=== PATIENT | male | born 1955 | race Caucasian/White ===

== ENCOUNTER 2019-04-09 07:00 | Emergency (ER) | payer BC, SELFPAY ==
[2019-04-09 07:14] VITALS: BP 124/84; PULSE 110; RESP 15; TEMP 36.8; O2SAT 96; BMI 14.6
--- NOTE | 2019-04-09 07:14 | ED.SOB ---
HPI - SOB/Dyspnea General Chief Complaint: Shortness of Breath/Dyspnea Stated Complaint: sob/cancer Time Seen by Provider: 04/09/19 07:05 Source: patient and family Mode of arrival: ambulatory Limitations: no limitations History of Present Illness 63-year-old male nonsmoker with history of esophageal cancer and recurrent pleural effusions presents with family. He is visiting locally and feels short of breath, like he normally does when he requires a thoracentesis. He is cared for in [place], [place] by oncologist and has been here about 2 weeks. He had very extensive pre travel exams including multiple CT scans. He has been feeling increasingly short of breath over the past few days. Denies any chest pain or fever or chills. He has a drain in his right pleura which he uses about every 3rd day and removed about 150 mL yesterday. MD Complaint: shortness of breath Severity: mild Consistency/Duration: constant Relieving factors: rest Exacerbating factors: exertion Associated symptoms: denies other symptoms Related Data Allergies Allergy/AdvReac Type Severity Reaction Status Date / Time No Known Drug Allergies Allergy Verified 04/09/19 07:14 Review of Systems Constitutional Denies chills, Denies fever(s), Denies lethargy and Denies weakness Eyes Denies change in vision, Denies eye discharge, Denies irritation and Denies loss of vision ENT Ears, Nose, Mouth, and Throat: Denies change in voice, Denies neck pain and Denies sore throat Cardiovascular Denies chest pain, Denies irregular heart rhythm, Denies lightheadedness, Denies palpitations, Reports dyspnea, Denies dyspnea on exertion and Denies orthopnea Respiratory Denies cough, Reports dyspnea, Denies dyspnea on exertion and Denies wheezing Gastrointestinal Gastrointestinal: Denies abdominal pain, Denies change in bowel habits, Denies diarrhea, Denies nausea and Denies vomiting Genitourinary Denies hematuria, Denies flank pain, Denies urinary incontinence and Denies urinary urgency Musculoskeletal Denies neck pain Integumentary/Breasts Denies pruritus, Denies erythema, Denies rash and Denies wounds Neurologic Denies confusion, Denies loss of vision and Denies weakness Psychiatric Denies anxiety, Denies confusion, Denies depression, Denies homicidal ideation and Denies suicidal ideation Endocrine Denies palpitations Hematologic/Lymphatic Denies easy bruising Allergic/Immunologic Denies wheezing [facility] Medical History (Updated 04/09/19 @ 18:58 by Aashish Phipps DO) Esophageal cancer (Acute) Social History Smoking Status: Never smoker Social History Smoking Status: Never smoker Exam Narrative Exam Narrative: GENERAL: Very pleasant 63-year-old male appears stated age, no obvious distress HEAD: Atraumatic. Normocephalic. No temporal or scalp tenderness. EYES: Pupils equal round and reactive. Extraocular motions intact. No scleral icterus. No injection or drainage. ENT: Nose without bleeding, purulent drainage or septal hematoma. Throat without erythema, tonsillar hypertrophy or exudate. Uvula midline. Airway patent. NECK: Trachea midline. No JVD or lymphadenopathy. Supple, nontender, no meningeal signs. CARDIOVASCULAR: Regular rate and rhythm without murmurs, gallops, or rubs. RESPIRATORY: Decreased breath sounds bilaterally, no breath sounds in the lower 1/3 of left lung GASTROINTESTINAL: Abdomen soft, non-tender, nondistended. No hepato-splenomegaly, or palpable masses. No guarding. EXTREMITIES: No clubbing, cyanosis, or edema. No joint tenderness, effusion, or edema noted. BACK: Nontender without deformity or crepitance. No flank tenderness. NEURO: AOx3. SKIN: No rash or erythema. Initial Vital Signs Initial Vital Signs: Vital Signs Temperature 98.3 F 04/09/19 07:14 Pulse Rate 110 H 04/09/19 07:14 Respiratory Rate 15 04/09/19 07:14 Blood Pressure 124/84 04/09/19 07:14 Pulse Oximetry 96 04/09/19 07:14 Course Orders Ordered: ED Orders 04/09/19 07:22 XR chest 2V Stat 04/09/19 08:19 Basic Metabolic Panel Stat Complete Blood Count AUTO DIFF Stat Prothrombin Time INR Stat 04/09/19 08:31 US chest Stat Consultations Consultation #1: I have spoken with on-call Radiology and after discussing chest x-ray and ultrasound results we sure the opinion that thoracentesis is not indicated at this point time. Vital Signs - 8 hr 04/09/19 07:14 04/09/19 07:23 Temperature 98.3 F 98.3 F Pulse Rate 110 H 102 H Respiratory Rate 15 11 L Blood Pressure 124/84 Blood Pressure [Right Arm] 124/84 Pulse Oximetry 96 98 MDM - SOB/Dyspnea Lab Data Result diagrams: 04/09/19 08:19 04/09/19 08:19 Lab Results 04/09/19 04/09/19 04/09/19 Range/Units 08:19 08:19 08:19 WBC 8.9 (4.5-11.0) X10^3/uL RBC 4.75 (4.5-5.9) X10^6/uL Hgb 12.6 L (13.5-17.5) g/dL Hct 38.8 L (41-53) % MCV 81.7 (80-100) fL MCH 26.5 (26-34) PG MCHC 32.4 (30-36) % RDW 20.1 H (11.6-14.8) % Plt Count 191 (150-400) X10^3/uL Neut % (Auto) 86.2 H (50-75) % Lymph % (Auto) 2.0 L (25-40) % [place] % (Auto) 9.8 (3-14) % Eos % (Auto) 1.1 L (2-4) % Baso % (Auto) 0.9 (0-2) % Neut # (Auto) 7600 H (4458-7819) /uL Lymph # (Auto) 200 L (9549-0048) /uL [place] # (Auto) 900 (0-900) /uL Eos # (Auto) 100 (0-450) /uL Baso # (Auto) 100 (0-100) /uL RBC Morphology See below Anisocytosis 1+ H PT 13.2 H (10.1-12.7) SECONDS INR 1.1 (0.9-1.3) Sodium 135 L (137-145) mmol/L Potassium 3.7 (3.4-5.1) mmol/L Chloride 97 L (98-107) mmol/L Carbon Dioxide 30 (22-32) mmol/L BUN 21 H (9-20) mg/dL Creatinine 0.80 (0.66-1.25) mg/dL Estimated GFR > 60.0 (>60) mL/min BUN/Creatinine Ratio 26.3 H (6-22) Glucose 103 (80-110) mg/dL Calcium 9.2 (8.4-10.2) mg/dL Imaging Data Chest x-ray: Radiologist's impression: [address] [id number] XRay Report Signed Patient: Arturo Whitfield EMR#: [id number] : 6Acct:[id number] Age/Sex: 63 / MDate of Service: 04/09/19 Loc: ED Accession Number: [id number] Procedure: XR chest 2V Ordering Provider: Aashish Phipps D.O. PROCEDURE: XR CHEST 2V INDICATIONS: SOB TECHNIQUE: 2 views of the chest were acquired. COMPARISON: None. FINDINGS: Surgical changes and devices: Left subclavian Mediport. A small bore right pleural drain in place.. Lungs and pleura: Moderate bilateral pleural effusions. The left effusion layers over the left lung apex. Thickening of the interstitial markings in the mid to lower lungs. Probable compressive atelectatic changes at both lung bases. Mediastinum: Mediastinal contours are normal. Heart size is normal. Mildly prominent hilar contours bilaterally. Bones and chest wall: No suspicious bony abnormalities. Soft tissues appear unremarkable. IMPRESSION: 1. Moderate bilateral pleural effusions, the right is drained by an indwelling catheter. 2. Interstitial markings are increased which may reflect edema, infection, or neoplasm. 3. Prominent hilar markings bilaterally, potentially adenopathy or central venous congestion. Dictated by: Xena Sharma M.D. on 04/09/2019 at 8:25 Approved by: Xena Sharma M.D. on 04/09/2019 at 8:30 Chest US: Radiologist's impression: [address] [address] Ultrasound Report Signed Patient: Arturo Whitfield EMR#: [id number] : 6Acct:[id number] Age/Sex: 63 / MDate of Service: 04/09/19 Loc: ED Accession Number: [id number] Procedure: US chest Ordering Provider: Aashish Phipps D.O. PROCEDURE: US CHEST COMPARISON: None. INDICATIONS: LEFT PLEURAL EFFUSION FINDINGS: Pleural ultrasound demonstrates approximately 300 cc left pleural fluid. IMPRESSION: Small pleural effusion. Not adequate for percutaneous thoracentesis. Dictated by: Tessy Hidalgo M.D. on 04/09/2019 at 9:25 Approved by: Tessy Hidalgo M.D. on 04/09/2019 at 9:25 [facility] Narrative Medical decision making narrative: 63-year-old male with history of esophageal cancer and recurrent pleural effusions presents in minimal distress. He states that he is far from significant distress but was concerned that maybe his pleural effusion had recurred. We discussed what shows on the imaging and the minimal size of this effusion. We also considered the possibility of pneumonia, pneumothorax or electrolyte abnormality. We discussed the possibility of doing a CAT scan of his chest for a PE but decided it was not something the patient would like to do right now but that he would return immediately if things should change. He has been given extensive return precautions and not only understands but is able to verbalize these precautions. Discharge Plan Departure Patient Disposition: Home Clinical Impression: Acute dyspnea, Pleural effusion Discharge Date/Time: 04/09/19 09:30 Interventions: ED Discharge Assessment Last Done: 04/09/19 09:40 Instructions: DI for Shortness of Breath Activity Restrictions/Additional Instructions: *You have been diagnosed with [shortness of breath and pleural effusion] *What to do: * continue to take medications as directed and consider over the counter antihistamines such as zyrtec, germania, or claritin *Follow up with your primary care provider daysi you get home, call for an appointment. Let them know you were seen in the Emergency Department and that we ask that you be seen in follow up *Return to ER if you should have any new, worsening or concerning symptoms
--- NOTE | 2019-04-09 07:22 | DI.RAD.S_ITS ---
PROCEDURE: XR CHEST 2V INDICATIONS: SOB TECHNIQUE: 2 views of the chest were acquired. COMPARISON: None. FINDINGS: Surgical changes and devices: Left subclavian Mediport. A small bore right pleural drain in place.. Lungs and pleura: Moderate bilateral pleural effusions. The left effusion layers over the left lung apex. Thickening of the interstitial markings in the mid to lower lungs. Probable compressive atelectatic changes at both lung bases. Mediastinum: Mediastinal contours are normal. Heart size is normal. Mildly prominent hilar contours bilaterally. Bones and chest wall: No suspicious bony abnormalities. Soft tissues appear unremarkable. IMPRESSION: 1. Moderate bilateral pleural effusions, the right is drained by an indwelling catheter. 2. Interstitial markings are increased which may reflect edema, infection, or neoplasm. 3. Prominent hilar markings bilaterally, potentially adenopathy or central venous congestion. Dictated by: Xena Sharma M.D. on 04/09/2019 at 8:25 Approved by: Xena Sharma M.D. on 04/09/2019 at 8:30
[2019-04-09 07:23] VITALS: BP 124/84; PULSE 102; RESP 11; TEMP 36.8; O2SAT 98
[2019-04-09 08:30] LABS: Add Manual Diff / Slide Review NO; Basophils Absolute Auto 100 /uL (0-100); Basophils Percent Auto 0.9 % (0-2); Eosinophils Absolute Auto 100 /uL (0-450); Eosinophils Percent Auto 1.1 % (2-4); Hematocrit 38.8 % (41-53); Hemoglobin 12.6 g/dL (13.5-17.5); Lymphocytes Absolute Auto 200 /uL (1100-4500); Mean Corpuscular HGB Conc 32.4 % (30-36); Mean Corpuscular Hemoglobin 26.5 PG (26-34); Mean Corpuscular Volume 81.7 fL (80-100); Monocytes Absolute Auto 900 /uL (0-900); Monocytes Percent Auto 9.8 % (3-14); Neutrophils Absolute Auto 7600 /uL (1500-7000); Neutrophils Percent Auto 86.2 % (50-75); Platelet Count 191 X10^3/uL (150-400); Red Blood Cell Count 4.75 X10^6/uL (4.5-5.9); Red Cell Distribution Width 20.1 % (11.6-14.8); White Blood Cell Count 8.9 X10^3/uL (4.5-11.0)
--- NOTE | 2019-04-09 08:31 | DI.US.S_ITS ---
PROCEDURE: US CHEST COMPARISON: None. INDICATIONS: LEFT PLEURAL EFFUSION FINDINGS: Pleural ultrasound demonstrates approximately 300 cc left pleural fluid. IMPRESSION: Small pleural effusion. Not adequate for percutaneous thoracentesis. Dictated by: Tessy Hidalgo M.D. on 04/09/2019 at 9:25 Approved by: Tessy Hidalgo M.D. on 04/09/2019 at 9:25
[2019-04-09 08:39] LABS: INR 1.1 (0.9-1.3); Prothrombin Time 13.2 SECONDS (10.1-12.7)
[2019-04-09 08:51] LABS: BUN Creatinine Ratio 26.3 (6-22); Blood Urea Nitrogen 21 mg/dL (9-20); Calcium 9.2 mg/dL (8.4-10.2); Carbon Dioxide 30 mmol/L (22-32); Chloride 97 mmol/L (98-107); Estimated Glomerular Filt Rate > 60.0 mL/min (>60); Glucose 103 mg/dL (80-110); HEMOLYSIS < 15 (0-50); Potassium 3.7 mmol/L (3.4-5.1); Sodium 135 mmol/L (137-145)
[2019-04-09 08:54] LABS: Anisocytosis 1+
--- NOTE | 2019-04-09 09:12 | ED_ITS ---
HPI - SOB/Dyspnea General Chief Complaint: Shortness of Breath/Dyspnea Stated Complaint: sob/cancer Time Seen by Provider: 04/09/19 07:05 Source: patient and family Mode of arrival: ambulatory Limitations: no limitations History of Present Illness 63-year-old male nonsmoker with history of esophageal cancer and recurrent pleural effusions presents with family. He is visiting locally and feels short of breath, like he normally does when he requires a thoracentesis. He is cared for in [place], [place] by oncologist and has been here about 2 weeks. He had very extensive pre travel exams including multiple CT scans. He has been feeling increasingly short of breath over the past few days. Denies any chest pain or fever or chills. He has a drain in his right pleura which he uses about every 3rd day and removed about 150 mL yesterday. MD Complaint: shortness of breath Severity: mild Consistency/Duration: constant Relieving factors: rest Exacerbating factors: exertion Associated symptoms: denies other symptoms Related Data Allergies Allergy/AdvReac Type Severity Reaction Status Date / Time No Known Drug Allergies Allergy Verified 04/09/19 07:14 Review of Systems Constitutional Denies chills, Denies fever(s), Denies lethargy and Denies weakness Eyes Denies change in vision, Denies eye discharge, Denies irritation and Denies loss of vision ENT Ears, Nose, Mouth, and Throat: Denies change in voice, Denies neck pain and Denies sore throat Cardiovascular Denies chest pain, Denies irregular heart rhythm, Denies lightheadedness, Denies palpitations, Reports dyspnea, Denies dyspnea on exertion and Denies orthopnea Respiratory Denies cough, Reports dyspnea, Denies dyspnea on exertion and Denies wheezing Gastrointestinal Gastrointestinal: Denies abdominal pain, Denies change in bowel habits, Denies diarrhea, Denies nausea and Denies vomiting Genitourinary Denies hematuria, Denies flank pain, Denies urinary incontinence and Denies urinary urgency Musculoskeletal Denies neck pain Integumentary/Breasts Denies pruritus, Denies erythema, Denies rash and Denies wounds Neurologic Denies confusion, Denies loss of vision and Denies weakness Psychiatric Denies anxiety, Denies confusion, Denies depression, Denies homicidal ideation and Denies suicidal ideation Endocrine Denies palpitations Hematologic/Lymphatic Denies easy bruising Allergic/Immunologic Denies wheezing [facility] Medical History (Updated 04/09/19 @ 18:58 by Aashish Phipps DO) Esophageal cancer (Acute) Social History Smoking Status: Never smoker Social History Smoking Status: Never smoker Exam Narrative Exam Narrative: GENERAL: Very pleasant 63-year-old male appears stated age, no obvious distress HEAD: Atraumatic. Normocephalic. No temporal or scalp tenderness. EYES: Pupils equal round and reactive. Extraocular motions intact. No scleral icterus. No injection or drainage. ENT: Nose without bleeding, purulent drainage or septal hematoma. Throat without erythema, tonsillar hypertrophy or exudate. Uvula midline. Airway patent. NECK: Trachea midline. No JVD or lymphadenopathy. Supple, nontender, no meningeal signs. CARDIOVASCULAR: Regular rate and rhythm without murmurs, gallops, or rubs. RESPIRATORY: Decreased breath sounds bilaterally, no breath sounds in the lower 1/3 of left lung GASTROINTESTINAL: Abdomen soft, non-tender, nondistended. No hepato- splenomegaly, or palpable masses. No guarding. EXTREMITIES: No clubbing, cyanosis, or edema. No joint tenderness, effusion, or edema noted. BACK: Nontender without deformity or crepitance. No flank tenderness. NEURO: AOx3. SKIN: No rash or erythema. Initial Vital Signs Initial Vital Signs: Vital Signs Temperature 98.3 F 04/09/19 07:14 Pulse Rate 110 H 04/09/19 07:14 Respiratory Rate 15 04/09/19 07:14 Blood Pressure 124/84 04/09/19 07:14 Pulse Oximetry 96 04/09/19 07:14 Course Orders Ordered: ED Orders 04/09/19 07:22 XR chest 2V Stat 04/09/19 08:19 Basic Metabolic Panel Stat Complete Blood Count AUTO DIFF Stat Prothrombin Time INR Stat 04/09/19 08:31 US chest Stat Consultations Consultation #1: I have spoken with on-call Radiology and after discussing chest x-ray and ultrasound results we sure the opinion that thoracentesis is not indicated at this point time. Vital Signs - 8 hr 04/09/19 07:14 04/09/19 07:23 Temperature 98.3 F 98.3 F Pulse Rate 110 H 102 H Respiratory Rate 15 11 L Blood Pressure 124/84 Blood Pressure [Right Arm] 124/84 Pulse Oximetry 96 98 MDM - SOB/Dyspnea Lab Data Result diagrams: 04/09/19 08:19 04/09/19 08:19 Lab Results 04/09/19 04/09/19 04/09/19 Range/Units 08:19 08:19 08:19 WBC 8.9 (4.5-11.0) X10^3/uL RBC 4.75 (4.5-5.9) X10^6/uL Hgb 12.6 L (13.5-17.5) g/dL Hct 38.8 L (41-53) % MCV 81.7 (80-100) fL MCH 26.5 (26-34) PG MCHC 32.4 (30-36) % RDW 20.1 H (11.6-14.8) % Plt Count 191 (150-400) X10^3/uL Neut % (Auto) 86.2 H (50-75) % Lymph % (Auto) 2.0 L (25-40) % [place] % (Auto) 9.8 (3-14) % Eos % (Auto) 1.1 L (2-4) % Baso % (Auto) 0.9 (0-2) % Neut # (Auto) 7600 H (1301-5755) /uL Lymph # (Auto) 200 L (0963-0359) /uL [place] # (Auto) 900 (0-900) /uL Eos # (Auto) 100 (0-450) /uL Baso # (Auto) 100 (0-100) /uL RBC Morphology See below Anisocytosis 1+ H PT 13.2 H (10.1-12.7) SECONDS INR 1.1 (0.9-1.3) Sodium 135 L (137-145) mmol/L Potassium 3.7 (3.4-5.1) mmol/L Chloride 97 L (98-107) mmol/L Carbon Dioxide 30 (22-32) mmol/L BUN 21 H (9-20) mg/dL Creatinine 0.80 (0.66-1.25) mg/dL Estimated GFR > 60.0 (>60) mL/min BUN/Creatinine Ratio 26.3 H (6-22) Glucose 103 (80-110) mg/dL Calcium 9.2 (8.4-10.2) mg/dL Imaging Data Chest x-ray: Radiologist's impression: [address] [address] XRay Report Signed Patient: Arturo Whitfield EMR#: [id number] : 6Acct:[id number] Age/Sex: 63 / MDate of Service: 04/09/19 Loc: ED Accession Number: [id number] Procedure: XR chest 2V Ordering Provider: Aashish Phipps D.O. PROCEDURE: XR CHEST 2V INDICATIONS: SOB TECHNIQUE: 2 views of the chest were acquired. COMPARISON: None. FINDINGS: Surgical changes and devices: Left subclavian Mediport. A small bore right pleural drain in place.. Lungs and pleura: Moderate bilateral pleural effusions. The left effusion layers over the left lung apex. Thickening of the interstitial markings in the mid to lower lungs. Probable compressive atelectatic changes at both lung bases. Mediastinum: Mediastinal contours are normal. Heart size is normal. Mildly prominent hilar contours bilaterally. Bones and chest wall: No suspicious bony abnormalities. Soft tissues appear unremarkable. IMPRESSION: 1. Moderate bilateral pleural effusions, the right is drained by an indwelling catheter. 2. Interstitial markings are increased which may reflect edema, infection, or neoplasm. 3. Prominent hilar markings bilaterally, potentially adenopathy or central venous congestion. Dictated by: Xena Sharma M.D. on 04/09/2019 at 8:25 Approved by: Xena Sharma M.D. on 04/09/2019 at 8:30 Chest US: Radiologist's impression: [address] [address] Ultrasound Report Signed Patient: Arturo Whitfield EMR#: [id number] : 6Acct:[id number] Age/Sex: 63 / MDate of Service: 04/09/19 Loc: ED Accession Number: [id number] Procedure: US chest Ordering Provider: Aashish Phipps D.O. PROCEDURE: US CHEST COMPARISON: None. INDICATIONS: LEFT PLEURAL EFFUSION FINDINGS: Pleural ultrasound demonstrates approximately 300 cc left pleural fluid. IMPRESSION: Small pleural effusion. Not adequate for percutaneous th oracentesis. Dictated by: Tessy Hidalgo M.D. on 04/09/2019 at 9:25 Approved by: Tessy Hidalgo M.D. on 04/09/2019 at 9:25 [facility] Narrative Medical decision making narrative: 63-year-old male with history of esophageal c ancer and recurrent pleural effusions presents in minimal distress. He states that he is far from significant distress but was concerned that maybe his pleural effusion had recurred. We discussed what shows on the imaging and the minimal size of this effusion. We also considered the possibility of pneumonia, pneumothorax or electrolyte abnormality. We discussed the possibility of doing a CAT scan of his chest for a PE but decided it was not something the patient would like to do right now but that he would return immediately if things should change. He has been given extensive return precautions and not only understands but is able to verbalize these precautions. Discharge Plan Departure Patient Disposition: Home Clinical Impression: Acute dyspnea, Pleural effusion Discharge Date/Time: 04/09/19 09:30 Interventions: ED Discharge Assessment Last Done: 04/09/19 09:40 Instructions: DI for Shortness of Breath Activity Restrictions/Additional Instructions: *You have been diagnosed with [shortness of breath and pleural effusion] *What to do: * continue to take medications as directed and consider over the counter antihistamines such as zyrtec, germania, or claritin *Follow up with your primary care provider daysi you get home, call for an appointment. Let them know you were seen in the Emergency Department and that we ask that you be seen in follow up *Return to ER if you should have any new, worsening or concerning symptoms
[2019-04-09 09:40] VITALS: BP 110/72; PULSE 99; RESP 17; TEMP 36.4; O2SAT 99
== END 2019-04-09 09:30 | disposition home or self-care (01) ==
PROVIDERS: Emergency Provider Emergency Medicine
DX: R06.00 Dyspnea, unspecified (principal); J90 Pleural effusion, not elsewhere classified
CPT/HCPCS: 36415; 71046; 76604; 80048; 85025; 85610; 93005; 93010; 99282; 99284

== ENCOUNTER 2019-04-13 09:13 | Emergency (ER) | payer BC, SELFPAY ==
[2019-04-13 09:15] VITALS: BP 126/87; PULSE 111; RESP 17; TEMP 36.5; O2SAT 93
--- NOTE | 2019-04-13 09:26 | DI.RAD.S_ITS ---
PROCEDURE: XR CHEST 1V INDICATIONS: return, short of breath, hx recurrent effusions TECHNIQUE: One view of the chest was acquired. COMPARISON: [facility], , US CHEST, 04/09/2019, 8:42. [facility], CR, XR CHEST 2V, 04/09/2019, 7:59. FINDINGS: Surgical changes and devices: There is a stable right-sided chest port seen. There is a right pleural drain seen. Lungs and pleura: Small bilateral pleural effusions are seen, left worse than right. Low lung volumes are noted. This causes a crowded appearance to the lung markings and limits evaluation. Interstitial prominence is seen throughout. No pneumothorax is seen. Mediastinum: Mediastinal contours appear normal. Heart size is mildly enlarged. Bones and chest wall: No suspicious bony lesions. Age-appropriate bony degenerative changes are seen. Overlying soft tissues appear unremarkable. IMPRESSION: Small bilateral pleural effusions, mild cardiomegaly, and interstitial prominence. Please correlate with patient presentation, physical examination findings, and laboratory values for congestive heart failure. There is a left-sided chest port and a right pleural drain present. Dictated by: Jamarcus Kuhn M.D. on 04/13/2019 at 8:52 Approved by: Jamarcus Kuhn M.D. on 04/13/2019 at 8:54
[2019-04-13 09:30] VITALS: BP 120/80; PULSE 103; RESP 26; O2SAT 95
[2019-04-13 09:47] LABS: Add Manual Diff / Slide Review NO; Basophils Absolute Auto 0 /uL (0-100); Basophils Percent Auto 0.5 % (0-2); Eosinophils Absolute Auto 100 /uL (0-450); Eosinophils Percent Auto 1.7 % (2-4); Hematocrit 36.9 % (41-53); Hemoglobin 12.2 g/dL (13.5-17.5); Lymphocytes Absolute Auto 200 /uL (1100-4500); Lymphocytes Percent Auto 2.5 % (25-40); Mean Corpuscular Hemoglobin 26.9 PG (26-34); Mean Corpuscular Volume 81.5 fL (80-100); Monocytes Absolute Auto 900 /uL (0-900); Monocytes Percent Auto 11.5 % (3-14); Neutrophils Absolute Auto 6400 /uL (1500-7000); Neutrophils Percent Auto 83.8 % (50-75); Platelet Count 195 X10^3/uL (150-400); Red Blood Cell Count 4.53 X10^6/uL (4.5-5.9); Red Cell Distribution Width 19.6 % (11.6-14.8); White Blood Cell Count 7.7 X10^3/uL (4.5-11.0)
[2019-04-13 09:55] LABS: INR 1.1 (0.9-1.3); Prothrombin Time 13.2 SECONDS (10.1-12.7)
[2019-04-13 10:00] VITALS: BP 110/66; PULSE 106; RESP 20; TEMP 37.2; O2SAT 96
[2019-04-13 10:00] LABS: BUN Creatinine Ratio 31.3 (6-22); Blood Urea Nitrogen 25 mg/dL (9-20); Calcium 9.3 mg/dL (8.4-10.2); Carbon Dioxide 28 mmol/L (22-32); Chloride 99 mmol/L (98-107); Estimated Glomerular Filt Rate > 60.0 mL/min (>60); Glucose 109 mg/dL (80-110); HEMOLYSIS < 15 (0-50); Potassium 3.6 mmol/L (3.4-5.1); Sodium 136 mmol/L (137-145)
--- NOTE | 2019-04-13 10:38 | DI.CT.S_ITS ---
PROCEDURE: CT ANGIO CHEST PE PROTOCOL INDICATIONS: SOB, travel, hx CA TECHNIQUE: After the administration of intravenous contrast, 2 mm thick sections acquired from the pulmonary apices to the posterior costophrenic angles. 3-dimensional maximum intensity projection (MIP) coronal and sagittal reformats were then acquired through the thorax. For radiation dose reduction, the following was used: automated exposure control, adjustment of mA and/or kV according to patient size. COMPARISON: None. FINDINGS: Image quality: Excellent. Pulmonary arteries: Pulmonary arteries are normal in size, and demonstrate no intraluminal filling defects to suggest central pulmonary embolism. Lungs and pleura: Small partially loculated left pleural effusion and moderate-sized loculated right pleural effusion is seen. Right-sided chest tube is noted. Scattered patchy infiltrate/atelectasis in posterior and lateral aspect of bilateral lung ruiz are seen more prominent in bilateral lower lobes. Hazy groundglass opacity in bilateral lung ruiz are noted more prominent in bilateral lower lobes suggestive of pulmonary edema versus pneumonitis. No pneumothorax. Central and peripheral airways are patent. Mediastinum: Heart size is normal, with small pericardial effusion measures up to 6 mm in thickness adjacent to left ventricle. Subcentimeter lymph nodes are seen scattered in the mediastinum and bilateral hilar region measures up to 7 mm in short axis diameter.. Thoracic aorta is normal in caliber and enhancement. Esophagus is normal in caliber, with a small to moderate-sized hiatal hernia. Bones and chest wall: Left chest wall Port-A-Cath tip is in SVC. Oval sclerotic focus involving posterior aspect of T3 vertebral body is seen, likely represent focal bone island. No suspicious bony lesions. Ribs and thoracic spine appear intact throughout. Thyroid gland is within normal limits. No axillary or supraclavicular adenopathy. Abdomen: Visualized upper abdominal solid organs appear normal in the early arterial phase of enhancement. Thickened left adrenal gland is seen. IMPRESSION: 1. Moderate-sized loculated right pleural effusion and at least partially loculated small to moderate size left pleural effusion. Small patchy infiltrate/atelectasis scattered in posterior and lateral aspect of the lateral lung ruiz more prominent in bilateral lower lobes. Suggestion of mild pulmonary edema versus pneumonitis. No pneumothorax. Airway is patent. Right-sided chest tube is in place. 2. Subcentimeter lymph nodes seen the mediastinum and bilateral hilar region. Small pericardial effusion. 3. Thickened left adrenal gland. Dictated by: Stas Shaikh M.D. on 04/13/2019 at 11:00 Approved by: Stas Shaikh M.D. on 04/13/2019 at 11:10
--- NOTE | 2019-04-13 10:48 | PC.NURSE ---
Pt has drainage pleuric tube on R chest and reports minimal drainage in sangenous color. Pt drained yesterday hoping it'd improve SOB. Denies fever. Dressing clean, dry , intact. Pt grunts in between talking with this RN but no retraction or increased work of breathing
--- NOTE | 2019-04-13 10:49 | ED.SOB ---
HPI - SOB/Dyspnea General Chief Complaint: Shortness of Breath/Dyspnea Stated Complaint: Shortness of breath Time Seen by Provider: 04/13/19 09:15 Source: patient and family Mode of arrival: ambulatory Limitations: no limitations History of Present Illness 63M non smoker with history of esophageal cancer and recurrent pleural effusions presents with his family. I had seen him personally on April 09 under similar circumstances and patient had concerned that his effusion had recurred. The patient has a drain in his right pleura and occasionally requires thoracentesis for the left side. He had evaluation which noted about 300 cc of fluid in his left pleural cavity and after lengthy discussion we should the opinion that this was not a sufficient volume to warrant the risk of the procedure. Furthermore there was discussion about the possibility of a CT angiogram for the presence of PE but we elected to hold off at that point time. Patient returns with ongoing, if not worsening shortness of breath. He denies any chest pain and is not dizzy or weak or lightheaded. He has no fever or chills but has had the occasional cough. He has been in contact with his oncology group back home whom endorses return MD Complaint: shortness of breath and cough Onset (ago): week(s) Context: recent travel Severity: moderate Consistency/Duration: constant Relieving factors: oxygen and rest Exacerbating factors: exertion Associated symptoms: denies other symptoms Related Data Home oxygen amount: none Home Medications Medication Instructions Recorded Confirmed amitriptyline 25 - 50 mg PO BEDTIME 04/13/19 04/13/19 amlodipine 5 mg PO DAILY 04/13/19 04/13/19 esomeprazole magnesium 40 mg PO DAILY 04/13/19 04/13/19 furosemide 20 mg PO DAILY 04/13/19 04/13/19 furosemide 40 mg PO DAILY 04/13/19 04/13/19 gabapentin 300 mg PO BID 04/13/19 04/13/19 gabapentin 600 mg PO BEDTIME 04/13/19 04/13/19 hydrocodone-acetaminophen 1 tab PO Q6H PRN 04/13/19 04/13/19 potassium chloride 20 meq PO BID 04/13/19 04/13/19 simvastatin 10 mg PO QPM 04/13/19 04/13/19 Previous Rx's Medication Instructions Recorded prednisone 20 mg PO DAILY #10 tab 04/13/19 Allergies Allergy/AdvReac Type Severity Reaction Status Date / Time No Known Drug Allergies Allergy Verified 04/13/19 09:56 Review of Systems Constitutional Denies chills, Denies fever(s), Denies lethargy and Denies weakness Eyes Denies change in vision, Denies eye discharge, Denies irritation and Denies loss of vision ENT Ears, Nose, Mouth, and Throat: Denies change in voice, Denies neck pain and Denies sore throat Cardiovascular Denies chest pain, Denies irregular heart rhythm, Denies lightheadedness, Denies palpitations, Reports dyspnea, Reports dyspnea on exertion and Denies orthopnea Respiratory Reports cough, Reports dyspnea, Reports dyspnea on exertion and Denies wheezing Gastrointestinal Gastrointestinal: Denies abdominal pain, Denies change in bowel habits, Denies diarrhea, Denies nausea and Denies vomiting Genitourinary Denies hematuria, Denies flank pain, Denies urinary incontinence and Denies urinary urgency Musculoskeletal Denies neck pain Integumentary/Breasts Denies pruritus, Denies erythema, Denies rash and Denies wounds Neurologic Denies confusion, Denies loss of vision and Denies weakness Psychiatric Denies anxiety, Denies confusion, Denies depression, Denies homicidal ideation and Denies suicidal ideation Endocrine Denies palpitations Hematologic/Lymphatic Denies easy bruising Allergic/Immunologic Denies wheezing PFSH Medical History Esophageal cancer (Acute) Social History Smoking Status: Never smoker Social History Smoking Status: Never smoker Exam Narrative Exam Narrative: GENERAL: Pleasant 63M resting, mild resting tachypnea HEAD: Atraumatic. Normocephalic. No temporal or scalp tenderness. EYES: Pupils equal round and reactive. Extraocular motions intact. No scleral icterus. No injection or drainage. ENT: Nose without bleeding, purulent drainage or septal hematoma. Throat without erythema, tonsillar hypertrophy or exudate. Uvula midline. Airway patent. NECK: Trachea midline. No JVD or lymphadenopathy. Supple, nontender, no meningeal signs. CARDIOVASCULAR: Regular rate and rhythm without murmurs, gallops, or rubs. RESPIRATORY: Decreased breath sounds bilaterally, absent breath sounds in bilateral bases, faint crackles GASTROINTESTINAL: Abdomen soft, non-tender, nondistended. No hepato-splenomegaly, or palpable masses. No guarding. EXTREMITIES: No clubbing, cyanosis, or edema. No joint tenderness, effusion, or edema noted. BACK: Nontender without deformity or crepitance. No flank tenderness. NEURO: AOx3. SKIN: No rash or erythema. Initial Vital Signs Initial Vital Signs: Vital Signs Temperature 97.7 F 04/13/19 09:15 Pulse Rate 111 H 04/13/19 09:15 Respiratory Rate 17 04/13/19 09:15 Blood Pressure 126/87 04/13/19 09:15 Pulse Oximetry 93 04/13/19 09:15 Course Orders Ordered: ED Orders 04/13/19 11:05 Urine Microscopic Stat Discontinued Medications Methylprednisolone (Solu-Medrol 125 Mg Vial) 125 mg IV NOW ONE Stop: 04/13/19 12:23 Last Admin: 04/13/19 12:30 Dose: 125 mg Consultations Consultation #1: call to Primary Medical Oncologist and reviewed case. He recommends prednisone daily and will see him next week upon return to [place]. Time: 12:02 Vital Signs - 8 hr 04/13/19 12:30 Pulse Rate 105 H Respiratory Rate 29 H Blood Pressure [Right Arm] 106/75 Pulse Oximetry 95 MDM - SOB/Dyspnea Lab Data Result diagrams: 04/13/19 09:40 04/13/19 09:40 Lab Results 04/13/19 04/13/19 04/13/19 Range/Units 09:40 09:40 09:40 WBC 7.7 (4.5-11.0) X10^3/uL RBC 4.53 (4.5-5.9) X10^6/uL Hgb 12.2 L (13.5-17.5) g/dL Hct 36.9 L (41-53) % MCV 81.5 (80-100) fL MCH 26.9 (26-34) PG MCHC 33.0 (30-36) % RDW 19.6 H (11.6-14.8) % Plt Count 195 (150-400) X10^3/uL Neut % (Auto) 83.8 H (50-75) % Lymph % (Auto) 2.5 L (25-40) % Mchenry % (Auto) 11.5 (3-14) % Eos % (Auto) 1.7 L (2-4) % Baso % (Auto) 0.5 (0-2) % Neut # (Auto) 6400 (9090-4487) /uL Lymph # (Auto) 200 L (6480-2992) /uL Mchenry # (Auto) 900 (0-900) /uL Eos # (Auto) 100 (0-450) /uL Baso # (Auto) 0 (0-100) /uL PT 13.2 H (10.1-12.7) SECONDS INR 1.1 (0.9-1.3) Sodium 136 L (137-145) mmol/L Potassium 3.6 (3.4-5.1) mmol/L Chloride 99 (98-107) mmol/L Carbon Dioxide 28 (22-32) mmol/L BUN 25 H (9-20) mg/dL Creatinine 0.80 (0.66-1.25) mg/dL Estimated GFR > 60.0 (>60) mL/min BUN/Creatinine Ratio 31.3 H (6-22) Glucose 109 (80-110) mg/dL Calcium 9.3 (8.4-10.2) mg/dL Troponin I 0.050 H (0.01-0.034) ng/mL Urine RBC (0-5/HPF) Urine WBC (0-5/HPF) Urine Bacteria (None) Ur Culture Indicated? 04/13/19 Range/Units 11:05 WBC (4.5-11.0) X10^3/uL RBC (4.5-5.9) X10^6/uL Hgb (13.5-17.5) g/dL Hct (41-53) % MCV (80-100) fL MCH (26-34) PG MCHC (30-36) % RDW (11.6-14.8) % Plt Count (150-400) X10^3/uL Neut % (Auto) (50-75) % Lymph % (Auto) (25-40) % Mchenry % (Auto) (3-14) % Eos % (Auto) (2-4) % Baso % (Auto) (0-2) % Neut # (Auto) (8638-4781) /uL Lymph # (Auto) (1092-7944) /uL Mchenry # (Auto) (0-900) /uL Eos # (Auto) (0-450) /uL Baso # (Auto) (0-100) /uL PT (10.1-12.7) SECONDS INR (0.9-1.3) Sodium (137-145) mmol/L Potassium (3.4-5.1) mmol/L Chloride (98-107) mmol/L Carbon Dioxide (22-32) mmol/L BUN (9-20) mg/dL Creatinine (0.66-1.25) mg/dL Estimated GFR (>60) mL/min BUN/Creatinine Ratio (6-22) Glucose (80-110) mg/dL Calcium (8.4-10.2) mg/dL Troponin I (0.01-0.034) ng/mL Urine RBC 0-1/hpf (0-5/HPF) Urine WBC None seen (0-5/HPF) Urine Bacteria None seen (None) Ur Culture Indicated? Cult not indicated Urine Dip Bedside Urine Glucose Negative Bedside Urine Bilirubin - Negative Bedside Urine Ketone - Negative Urine Specific Smoot 1.020 Bedside Urine Occult Blood +/- Bedside Urine pH 6.0 Bedside Urine Protein - Negative Bedside Urine Urobilinogen - Negative Bedside Urine Nitrite - Negative Bedside Urine Leukocytes - Negative Esterase Imaging Data Chest x-ray: Radiologist's impression: [address] [address] XRay Report Signed Patient: Arturo Whitfield EMR#: [id number] : 6Acct:[id number] Age/Sex: 63 / MDate of Service: 04/13/19 Loc: ED Accession Number: [id number] Procedure: XR chest 1V Ordering Provider: Aashish Phipps D.O. PROCEDURE: XR CHEST 1V INDICATIONS: return, short of breath, hx recurrent effusions TECHNIQUE: One view of the chest was acquired. COMPARISON: [facility], , US CHEST, 04/09/2019, 8:42. [facility], , XR CHEST 2V, 04/09/2019, 7:59. FINDINGS: Surgical changes and devices: There is a stable right-sided chest port seen. There is a right pleural drain seen. Lungs and pleura: Small bilateral pleural effusions are seen, left worse than right. Low lung volumes are noted. This causes a crowded appearance to the lung markings and limits evaluation. Interstitial prominence is seen throughout. No pneumothorax is seen. Mediastinum: Mediastinal contours appear normal. Heart size is mildly enlarged. Bones and chest wall: No suspicious bony lesions. Age-appropriate bony degenerative changes are seen. Overlying soft tissues appear unremarkable. IMPRESSION: Small bilateral pleural effusions, mild cardiomegaly, and interstitial prominence. Please correlate with patient presentation, physical examination findings, and laboratory values for congestive heart failure. There is a left-sided chest port and a right pleural drain present. Dictated by: Jamarcus Kuhn M.D. on 04/13/2019 at 8:52 Approved by: Jamarcus Kuhn M.D. on 04/13/2019 at 8:54 CT scan - chest: Radiologist's impression: [place] [address] CT Scan Report Signed Patient: Arturo Whitfield EMR#: [id number] : 6Acct:[id number] Age/Sex: 63 / MDate of Service: 04/13/19 Loc: ED Accession Number: [id number] Procedure: CT angio chest PE protocol Ordering Provider: Aashish Phipps D.O. PROCEDURE: CT ANGIO CHEST PE PROTOCOL INDICATIONS: SOB, travel, hx CA TECHNIQUE: After the administration of intravenous contrast, 2 mm thick sections acquired from the pulmonary apices to the posterior costophrenic angles. 3-dimensional maximum intensity projection (MIP) coronal and sagittal reformats were then acquired through the thorax. For radiation dose reduction, the following was used: automated exposure control, adjustment of mA and/or kV according to patient size. COMPARISON: None. FINDINGS: Image quality: Excellent. Pulmonary arteries: Pulmonary arteries are normal in size, and demonstrate no intraluminal filling defects to suggest central pulmonary embolism. Lungs and pleura: Small partially loculated left pleural effusion and moderate-sized loculated right pleural effusion is seen. Right-sided chest tube is noted. Scattered patchy infiltrate/atelectasis in posterior and lateral aspect of bilateral lung ruiz are seen more prominent in bilateral lower lobes. Hazy groundglass opacity in bilateral lung ruiz are noted more prominent in bilateral lower lobes suggestive of pulmonary edema versus pneumonitis. No pneumothorax. Central and peripheral airways are patent. Mediastinum: Heart size is normal, with small pericardial effusion measures up to 6 mm in thickness adjacent to left ventricle. Subcentimeter lymph nodes are seen scattered in the mediastinum and bilateral hilar region measures up to 7 mm in short axis diameter.. Thoracic aorta is normal in caliber and enhancement. Esophagus is normal in caliber, with a small to moderate-sized hiatal hernia. Bones and chest wall: Left chest wall Port-A-Cath tip is in SVC. Oval sclerotic focus involving posterior aspect of T3 vertebral body is seen, likely represent focal bone island. No suspicious bony lesions. Ribs and thoracic spine appear intact throughout. Thyroid gland is within normal limits. No axillary or supraclavicular adenopathy. Abdomen: Visualized upper abdominal solid organs appear normal in the early arterial phase of enhancement. Thickened left adrenal gland is seen. IMPRESSION: 1. Moderate-sized loculated right pleural effusion and at least partially loculated small to moderate size left pleural effusion. Small patchy infiltrate/atelectasis scattered in posterior and lateral aspect of the lateral lung ruiz more prominent in bilateral lower lobes. Suggestion of mild pulmonary edema versus pneumonitis. No pneumothorax. Airway is patent. Right-sided chest tube is in place. 2. Subcentimeter lymph nodes seen the mediastinum and bilateral hilar region. Small pericardial effusion. 3. Thickened left adrenal gland. Dictated by: Stas Shaikh M.D. on 04/13/2019 at 11:00 Approved by: Stas Shaikh M.D. on 04/13/2019 at 11:10 [facility] Narrative Medical decision making narrative: Multiple etiologies for patient's symptoms considered including: [Pulmonary embolism versus pneumonia versus pneumothorax versus pleural effusion versus pneumonitis from medications versus other] Patient's symptoms improved or duration of stay with above-stated therapies. Findings and discharge diagnosis discussed with patient/family followed by verbalization of understanding Return precautions discussed with patient/family whom verbalize understanding. Discharge Plan Departure Patient Disposition: Home Clinical Impression: Acute dyspnea, Pleural effusion, Pneumonitis Discharge Date/Time: 04/13/19 13:26 Interventions: ED Discharge Assessment Last Done: 04/13/19 13:25 Activity Restrictions/Additional Instructions: *You have been diagnosed with [acute dyspnea, pleural effusion, pneumonitis due to your medications] *What to do: *Take medications as directed *Follow up with your primary medical oncologist when you return to [place] as previously planend. Let them know you were seen in the Emergency Department and that we ask that you be seen in follow up *Return to ER if you should have any new, worsening or concerning symptoms Prescriptions: New prednisone 20 mg tablet 20 mg PO DAILY Qty: 10 RF: 0 No Action furosemide 40 mg tablet 40 mg PO DAILY RF: 0 simvastatin 10 mg tablet 10 mg PO QPM RF: 0 amlodipine 5 mg tablet 5 mg PO DAILY RF: 0 amitriptyline 25 mg tablet 25 - 50 mg PO BEDTIME RF: 0 hydrocodone-acetaminophen 7.5-325 mg tablet 1 tab PO Q6H PRN (Reason: Pain, Moderate) RF: 0 esomeprazole magnesium 40 mg Capsule,Delayed Release(Dr/Ec) 40 mg PO DAILY RF: 0 gabapentin 300 mg capsule 300 mg PO BID RF: 0 gabapentin 300 mg capsule 600 mg PO BEDTIME RF: 0 furosemide 20 mg tablet 20 mg PO DAILY RF: 0 potassium chloride 10 mEq tablet,ER particles/crystals 20 meq PO BID RF: 0
--- NOTE | 2019-04-13 10:55 | ED_ITS ---
HPI - SOB/Dyspnea General Chief Complaint: Shortness of Breath/Dyspnea Stated Complaint: Shortness of breath Time Seen by Provider: 04/13/19 09:15 Source: patient and family Mode of arrival: ambulatory Limitations: no limitations History of Present Illness 63M non smoker with history of esophageal cancer and recurrent pleural effusions presents with his family. I had seen him personally on April 09 under similar circumstances and patient had concerned that his effusion had recurred. The patient has a drain in his right pleura and occasionally requires thoracentesis for the left side. He had evaluation which noted about 300 cc of fluid in his left pleural cavity and after lengthy discussion we should the opinion that this was not a sufficient volume to warrant the risk of the procedure. Furthermore there was discussion about the possibility of a CT angiogram for the presence of PE but we elected to hold off at that point time. Patient returns with ongoing, if not worsening shortness of breath. He denies any chest pain and is not dizzy or weak or lightheaded. He has no fever or chills but has had the occasional cough. He has been in contact with his oncology group back home whom endorses return MD Complaint: shortness of breath and cough Onset (ago): week(s) Context: recent travel Severity: moderate Consistency/Duration: constant Relieving factors: oxygen and rest Exacerbating factors: exertion Associated symptoms: denies other symptoms Related Data Home oxygen amount: none Home Medications Medication Instructions Recorded Confirmed amitriptyline 25 - 50 mg PO BEDTIME 04/13/19 04/13/19 amlodipine 5 mg PO DAILY 04/13/19 04/13/19 esomeprazole magnesium 40 mg PO DAILY 04/13/19 04/13/19 furosemide 20 mg PO DAILY 04/13/19 04/13/19 furosemide 40 mg PO DAILY 04/13/19 04/13/19 gabapentin 300 mg PO BID 04/13/19 04/13/19 gabapentin 600 mg PO BEDTIME 04/13/19 04/13/19 hydrocodone-acetaminophen 1 tab PO Q6H PRN 04/13/19 04/13/19 potassium chloride 20 meq PO BID 04/13/19 04/13/19 simvastatin 10 mg PO QPM 04/13/19 04/13/19 Previous Rx's Medication Instructions Recorded prednisone 20 mg PO DAILY #10 tab 04/13/19 Allergies Allergy/AdvReac Type Severity Reaction Status Date / Time No Known Drug Allergies Allergy Verified 04/13/19 09:56 Review of Systems Constitutional Denies chills, Denies fever(s), Denies lethargy and Denies weakness Eyes Denies change in vision, Denies eye discharge, Denies irritation and Denies loss of vision ENT Ears, Nose, Mouth, and Throat: Denies change in voice, Denies neck pain and Denies sore throat Cardiovascular Denies chest pain, Denies irregular heart rhythm, Denies lightheadedness, Denies palpitations, Reports dyspnea, Reports dyspnea on exertion and Denies orthopnea Respiratory Reports cough, Reports dyspnea, Reports dyspnea on exertion and Denies wheezing Gastrointestinal Gastrointestinal: Denies abdominal pain, Denies change in bowel habits, Denies diarrhea, Denies nausea and Denies vomiting Genitourinary Denies hematuria, Denies flank pain, Denies urinary incontinence and Denies urinary urgency Musculoskeletal Denies neck pain Integumentary/Breasts Denies pruritus, Denies erythema, Denies rash and Denies wounds Neurologic Denies confusion, Denies loss of vision and Denies weakness Psychiatric Denies anxiety, Denies confusion, Denies depression, Denies homicidal ideation and Denies suicidal ideation Endocrine Denies palpitations Hematologic/Lymphatic Denies easy bruising Allergic/Immunologic Denies wheezing PFSH Medical History Esophageal cancer (Acute) Social History Smoking Status: Never smoker Social History Smoking Status: Never smoker Exam Narrative Exam Narrative: GENERAL: Pleasant 63M resting, mild resting tachypnea HEAD: Atraumatic. Normocephalic. No temporal or scalp tenderness. EYES: Pupils equal round and reactive. Extraocular motions intact. No scleral icterus. No injection or drainage. ENT: Nose without bleeding, purulent drainage or septal hematoma. Throat without erythema, tonsillar hypertrophy or exudate. Uvula midline. Airway patent. NECK: Trachea midline. No JVD or lymphadenopathy. Supple, nontender, no meningeal signs. CARDIOVASCULAR: Regular rate and rhythm without murmurs, gallops, or rubs. RESPIRATORY: Decreased breath sounds bilaterally, absent breath sounds in bilateral bases, faint crackles GASTROINTESTINAL: Abdomen soft, non-tender, nondistended. No hepato- splenomegaly, or palpable masses. No guarding. EXTREMITIES: No clubbing, cyanosis, or edema. No joint tenderness, effusion, or edema noted. BACK: Nontender without deformity or crepitance. No flank tenderness. NEURO: AOx3. SKIN: No rash or erythema. Initial Vital Signs Initial Vital Signs: Vital Signs Temperature 97.7 F 04/13/19 09:15 Pulse Rate 111 H 04/13/19 09:15 Respiratory Rate 17 04/13/19 09:15 Blood Pressure 126/87 04/13/19 09:15 Pulse Oximetry 93 04/13/19 09:15 Course Orders Ordered: ED Orders 04/13/19 11:05 Urine Microscopic Stat Discontinued Medications Methylprednisolone (Solu-Medrol 125 Mg Vial) 125 mg IV NOW ONE Stop: 04/13/19 12:23 Last Admin: 04/13/19 12:30 Dose: 125 mg Consultations Consultation #1: call to Primary Medical Oncologist and reviewed case. He recommends prednisone daily and will see him next week upon return to [place]. Time: 12:02 Vital Signs - 8 hr 04/13/19 12:30 Pulse Rate 105 H Respiratory Rate 29 H Blood Pressure [Right Arm] 106/75 Pulse Oximetry 95 MDM - SOB/Dyspnea Lab Data Result diagrams: 04/13/19 09:40 04/13/19 09:40 Lab Results 04/13/19 04/13/19 04/13/19 Range/Units 09:40 09:40 09:40 WBC 7.7 (4.5-11.0) X10^3/uL RBC 4.53 (4.5-5.9) X10^6/uL Hgb 12.2 L (13.5-17.5) g/dL Hct 36.9 L (41-53) % MCV 81.5 (80-100) fL MCH 26.9 (26-34) PG MCHC 33.0 (30-36) % RDW 19.6 H (11.6-14.8) % Plt Count 195 (150-400) X10^3/uL Neut % (Auto) 83.8 H (50-75) % Lymph % (Auto) 2.5 L (25-40) % Calvert % (Auto) 11.5 (3-14) % Eos % (Auto) 1.7 L (2-4) % Baso % (Auto) 0.5 (0-2) % Neut # (Auto) 6400 (9125-6893) /uL Lymph # (Auto) 200 L (6971-4617) /uL Calvert # (Auto) 900 (0-900) /uL Eos # (Auto) 100 (0-450) /uL Baso # (Auto) 0 (0-100) /uL PT 13.2 H (10.1-12.7) SECONDS INR 1.1 (0.9-1.3) Sodium 136 L (137-145) mmol/L Potassium 3.6 (3.4-5.1) mmol/L Chloride 99 (98-107) mmol/L Carbon Dioxide 28 (22-32) mmol/L BUN 25 H (9-20) mg/dL Creatinine 0.80 (0.66-1.25) mg/dL Estimated GFR > 60.0 (>60) mL/min BUN/Creatinine Ratio 31.3 H (6-22) Glucose 109 (80-110) mg/dL Calcium 9.3 (8.4-10.2) mg/dL Troponin I 0.050 H (0.01-0.034) ng/mL Urine RBC (0-5/HPF) Urine WBC (0-5/HPF) Urine Bacteria (None) Ur Culture Indicated? 04/13/19 Range/Units 11:05 WBC (4.5-11.0) X10^3/uL RBC (4.5-5.9) X10^6/uL Hgb (13.5-17.5) g/dL Hct (41-53) % MCV (80-100) fL MCH (26-34) PG MCHC (30-36) % RDW (11.6-14.8) % Plt Count (150-400) X10^3/uL Neut % (Auto) (50-75) % Lymph % (Auto) (25-40) % Calvert % (Auto) (3-14) % Eos % (Auto) (2-4) % Baso % (Auto) (0-2) % Neut # (Auto) (8594-7113) /uL Lymph # (Auto) (6929-7761) /uL Calvert # (Auto) (0-900) /uL Eos # (Auto) (0-450) /uL Baso # (Auto) (0-100) /uL PT (10.1-12.7) SECONDS INR (0.9-1.3) Sodium (137-145) mmol/L Potassium (3.4-5.1) mmol/L Chloride (98-107) mmol/L Carbon Dioxide (22-32) mmol/L BUN (9-20) mg/dL Creatinine (0.66-1.25) mg/dL Estimated GFR (>60) mL/min BUN/Creatinine Ratio (6-22) Glucose (80-110) mg/dL Calcium (8.4-10.2) mg/dL Troponin I (0.01-0.034) ng/mL Urine RBC 0-1/hpf (0-5/HPF) Urine WBC None seen (0-5/HPF) Urine Bacteria None seen (None) Ur Culture Indicated? Cult not indicated Urine Dip Bedside Urine Glucose Negative Bedside Urine Bilirubin - Negative Bedside Urine Ketone - Negative Urine Specific [place]ckley 1.020 Bedside Urine Occult Blood +/- Bedside Urine pH 6.0 Bedside Urine Protein - Negative Bedside Urine Urobilinogen - Negative Bedside Urine Nitrite - Negative Bedside Urine Leukocytes - Negative Esterase Imaging Data Chest x-ray: Radiologist's impression: [address] [address] XRay Report Signed Patient: Arturo Whitfield EMR#: [id number] : 6Acct:[id number] Age/Sex: 63 / MDate of Service: 04/13/19 Loc: ED Accession Number: [id number] Procedure: XR chest 1V Ordering Provider: Aashish Phipps D.O. PROCEDURE: XR CHEST 1V INDICATIONS: return, short of breath, hx recurrent effusions TECHNIQUE: One view of the chest was acquired. COMPARISON: [facility], , US CHEST, 04/09/2019, 8:42. [facility], , XR CHEST 2V, 04/09/2019, 7:59. FINDINGS: Surgical changes and devices: There is a stable right-sided chest port seen. There is a right pleural drain seen. Lungs and pleura: Small bilateral pleural effusions are seen, left worse than right. Low lung volumes are noted. This causes a crowded appearance to the lung markings and limits evaluation. Interstitial prominence is seen throughout. No pneumothorax is seen. Mediastinum: Mediastinal contours appear normal. Heart size is mildly enlarged. Bones and chest wall: No suspicious bony lesions. Age-appropriate bony degenerative changes are seen. Overlying soft tissues appear unremarkable. IMPRESSION: Small bilateral pleural effusions, mild cardiomegaly, and interstitial prominence. Please correlate with patient presentation, physical examination findings, and laboratory values for congestive heart failure. There is a left-sided chest port and a right pleural drain present. Dictated by: Jamarcus Kuhn M.D. on 04/13/2019 at 8:52 Approved by: Jamarcus Kuhn M.D. on 04/13/2019 at 8:54 CT scan - chest: Radiologist's impression: [place] [address] CT Scan Report Signed Patient: Arturo Whitfield EMR#: [id number] : 6Acct:[id number] Age/Sex: 63 / MDate of Service: 04/13/19 Loc: ED Accession Number: [id number] Procedure: CT angio chest PE protocol Ordering Provider: Aashish Phipps D.O. PROCEDURE: CT ANGIO CHEST PE PROTOCOL INDICATIONS: SOB, travel, hx CA TECHNIQUE: After the administration of intravenous contrast, 2 mm thick sections acquired from the pulmonary apices to the posterior costophrenic angles. 3-dimensional maximum intensity projection (MIP) coronal and sagittal reformats were then acquired through the thorax. For radiation dose reduction, the following was used: automated exposure control, adjustment of mA and/or kV according to patient size. COMPARISON: None. FINDINGS: Image quality: Excellent. Pulmonary arteries: Pulmonary arteries are normal in size, and demonstrate no intraluminal filling defects to suggest central pulmonary embolism. Lungs and pleura: Small partially loculated left pleural effusion and moderate- sized loculated right pleural effusion is seen. Right-sided chest tube is noted. Scattered patchy infiltrate/atelectasis in posterior and lateral aspect of bilateral lung ruiz are seen more prominent in bilateral lower lobes. Hazy groundglass opacity in bilateral lung ruiz are noted more prominent in bilateral lower lobes suggestive of pulmonary edema versus pneumonitis. No pneumothorax. Central and peripheral airways are patent. Mediastinum: Heart size is normal, with small pericardial effusion measures up to 6 mm in thickness adjacent to left ventricle. Subcentimeter lymph nodes are seen scattered in the mediastinum and bilateral hilar region measures up to 7 mm in short axis diameter.. Thoracic aorta is normal in caliber and enhancement. Esophagus is normal in caliber, with a small to moderate-sized hiatal hernia. Bones and chest wall: Left chest wall Port-A-Cath tip is in SVC. Oval sclerotic focus involving posterior aspect of T3 vertebral body is seen, likely represent focal bone island. No suspicious bony lesions. Ribs and thoracic spine appear intact throughout. Thyroid gland is within normal limits. No axillary or supraclavicular adenopathy. Abdomen: Visualized upper abdominal solid organs appear normal in the early arterial phase of enhancement. Thickened left adrenal gland is seen. IMPRESSION: 1. Moderate-sized loculated right pleural effusion and at least partially loculated small to moderate size left pleural effusion. Small patchy infiltrate/atelectasis scattered in posterior and lateral aspect of the lateral lung ruiz more prominent in bilat eral lower lobes. Suggestion of mild pulmonary edema versus pneumonitis. No pneumothorax. Airway is patent. Right-sided chest tube is in place. 2. Subcentimeter lymph nodes seen the mediastinum and bilateral hilar region. Small pericardial effusion. 3. Thickened left adrenal gland. Dictated by: Stas Shaikh M.D. on 04/13/2019 at 11:00 Approved by: Stas Shaikh M.D. on 04/13/2019 at 11:10 MDM Narrative Medical decision making narrative: Multiple etiologies for patient's symptoms considered including: [Pulmonary embolism versus pneumonia versus pneumothorax versus pleural effusion versus pneumonitis from medications versus other] Patient's symptoms improved or duration of stay with above-stated therapies. Findings and discharge diagnosis discussed with patient/family followed by verbalization of understanding Return precautions discussed with patient/family whom verbalize understanding. Discharge Plan Departure Patient Disposition: Home Clinical Impression: Acute dyspnea, Pleural effusion, Pneumonitis Discharge Date/Time: 04/13/19 13:26 Interventions: ED Discharge Assessment Last Done: 04/13/19 13:25 Activity Restrictions/Additional Instructions: *You have been diagnosed with [acute dyspnea, pleural effusion, pneumonitis due to your medications] *What to do: *Take medications as directed *Follow up with your primary medical oncologist when you return to [place] as previously planend. Let them know you were seen in the Emergency Department and that we ask that you be seen in follow up *Return to ER if you should have any new, worsening or concerning symptoms Prescriptions: New prednisone 20 mg tablet 20 mg PO DAILY Qty: 10 RF: 0 No Action furosemide 40 mg tablet 40 mg PO DAILY RF: 0 simvastatin 10 mg tablet 10 mg PO QPM RF: 0 amlodipine 5 mg tablet 5 mg PO DAILY RF: 0 amitriptyline 25 mg tablet 25 - 50 mg PO BEDTIME RF: 0 hydrocodone-acetaminophen 7.5-325 mg tablet 1 tab PO Q6H PRN (Reason: Pain, Moderate) RF: 0 esomeprazole magnesium 40 mg Capsule,Delayed Release(Dr/Ec) 40 mg PO DAILY RF: 0 gabapentin 300 mg capsule 300 mg PO BID RF: 0 gabapentin 300 mg capsule 600 mg PO BEDTIME RF: 0 furosemide 20 mg tablet 20 mg PO DAILY RF: 0 potassium chloride 10 mEq tablet,ER particles/crystals 20 meq PO BID RF: 0
--- NOTE | 2019-04-13 11:14 | PC.NURSE ---
Pt returned from CT, voided at bedside using urinal. increased SOB with minimal exertion and noticed tachypnea at 26/min.
[2019-04-13 11:19] LABS: Bacteria Urine None Seen; WBC Urine None Seen (0-5/HPF)
[2019-04-13 11:29] LABS: Culture Indicated Urine Cult Not Indicated; RBC Urine 0-1/HPF (0-5/HPF)
[2019-04-13 11:30] VITALS: BP 100/73; PULSE 104; RESP 15; O2SAT 94
[2019-04-13 12:30] VITALS: BP 106/75; PULSE 105; RESP 29; O2SAT 95
[2019-04-13] MEDS: methylPREDNISolone 125 MG/2 ML VIAL IV (12:30)
== END 2019-04-13 13:26 | disposition home or self-care (01) ==
PROVIDERS: Emergency Provider Emergency Medicine
DX: J18.9 Pneumonia, unspecified organism (principal); R06.00 Dyspnea, unspecified; J90 Pleural effusion, not elsewhere classified
CPT/HCPCS: 36591; 71045; 71275; 80048; 81003; 81015; 84484; 85025; 85610; 93005; 93010; 93041; 96374; 99284; J2930; Q9967